=== PATIENT | female | born 1975 ===

== ENCOUNTER 2017-01-19 10:10 | Emergency (ER) | payer OTHER ==
[2017-01-19 10:17] VITALS: BMI 24.1
--- NOTE | 2017-01-19 10:31 | C.PDOC ---
Time Seen by Provider: 01/19/17 10:18 Chief Complaint (Nursing): Female Genitourinary History Per: Patient History/Exam Limitations: no limitations Onset/Duration Of Symptoms: Days Current Symptoms Are (Timing): Still Present Past Medical History Reviewed: Historical Data, Nursing Documentation, Vital Signs Vital Signs: Last Vital Signs Temp 98.2 F 01/19/17 11:20 Pulse 80 01/19/17 11:20 Resp 16 01/19/17 11:20 BP 130/70 01/19/17 11:20 Pulse Ox 100 01/20/17 20:16 Surgical History: No Surg Hx Family History: States: Unknown Family Hx - Social History Hx Alcohol Use: No Hx Substance Use: No - Immunization History Hx Tetanus Toxoid Vaccination: No Hx Influenza Vaccination: No Hx Pneumococcal Vaccination: No Review Of Systems Constitutional: Negative for: Fever, Chills, Sweats Respiratory: Negative for: Cough, Shortness of Breath Gastrointestinal: Positive for: Nausea, Abdominal Pain. Negative for: Diarrhea , Constipation Genitourinary: Positive for: Dysuria, Frequency. Negative for: Hematuria, Vaginal Discharge, Vaginal Bleeding Skin: Negative for: Rash Physical Exam - Physical Exam Appears: Non-toxic, No Acute Distress Skin: Warm, Dry Head: Atraumatic, Normacephalic Eye(s): bilateral: Normal Inspection, PERRL Oral Mucosa: Moist Neck: Supple Chest: Symmetrical, No Deformity, No Tenderness Cardiovascular: Rhythm Regular, No Murmur Respiratory: Normal Breath Sounds, No Rales, No Rhonchi Gastrointestinal/Abdominal: Soft, Tenderness (mild suprapubic), No Guarding, No Rebound Back: No CVA Tenderness Neurological/Psych: Oriented x3, Normal Speech, Normal Cognition ED Course And Treatment O2 Sat by Pulse Oximetry: 100 (RA) Progress Note: The patient received a Urine Culture and UA. The exams are unremarkable.The patient is afebrile and is PO tolerant. The patient has improved and is resting comfortably. The patient is advised to have a follow up with her PMD for further evaluation. 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 Disposition Counseled Patient/Family Regarding: Studies Performed, Diagnosis, Need For Followup, Rx Given - Disposition Referrals: Charity Araiza MD [Non-Staff] - Disposition: HOME/ ROUTINE Disposition Time: 10:50 Condition: STABLE Additional Instructions: Please take antibiotics as prescribed. Follow up with your motorcycle deliverer with annual exam and re-evaluatin. Return to ER for back pain, vomiting or any other concerns. Prescriptions: Nitrofurantoin Macrocrystals [Macrobid] 100 mg PO BID #14 cap Instructions: Urinary Tract Infection in Women (ED) Forms: [facility] (Armenian), General Discharge Instructions - Clinical Impression Clinical Impression: UTI (urinary tract infection) - PA / [employer] / Resident Statement MD/DO has reviewed & agrees with the documentation as recorded. MD/DO has examined the patient and agrees with the treatment plan. - Scribe Statement The provider has reviewed the documentation as recorded by the Joselito Catherine All medical record entries made by the Joselito were at my direction and personally dictated by me. I have reviewed the chart and agree that the record accurately reflects my personal performance of the history, physical exam, medical decision making, and the department course for this patient. I have also personally directed, reviewed, and agree with the discharge instructions and disposition.manda
[2017-01-19 10:35] VITALS: O2SAT 100
[2017-01-19 10:42] LABS: RBC URINE 1 /hpf (0-3); URINE BACTERIA OCC (<OCC); URINE BILIRUBIN NEGATIVE (NEGATIVE); URINE BLOOD NEGATIVE (NEGATIVE); URINE COLOR Yellow (YELLOW); URINE GLUCOSE (UA) NORMAL (Normal); URINE KETONE NEGATIVE (NEGATIVE); URINE LEUKOCYTE ESTERASE TRACE Leu/uL (Negative); URINE PROTEIN NEGATIVE (NEGATIVE); URINE UROBILINOGEN NORMAL mg/dL (0.2-1.0); WBC URINE 4 /hpf (0-5)
[2017-01-19 11:21] VITALS: BP 130/70; PULSE 80; RESP 16; TEMP 98.2
== END 2017-01-19 11:20 | disposition home or self-care (01) ==
LOC: C.ER 10:10
DX: N39.0 Urinary tract infection, site not specified (principal)

== ENCOUNTER 2017-03-24 20:54 | Emergency (ER) | payer OTHER ==
[2017-03-24 20:54] VITALS: BMI 24.1
--- NOTE | 2017-03-24 21:35 | C.PDOC ---
History Of Present Illness Gabriela Espinosa is a 41 y/o female complaining of nausea and diarrhea and cramping abdominal pain. She initially came to the ER accompanying her three sick children, who are being seen for similar symptoms. A fourth child, the youngest daughter, was sick first on . No fever or chills. Pt became nauseous while in [facility]EDS ER, requesting medication for nausea. She has not yet vomited. Time Seen by Provider: 03/24/17 21:17 Chief Complaint (Nursing): Abdominal Pain History Per: Patient History/Exam Limitations: no limitations Onset/Duration Of Symptoms: Days (x 1) Current Symptoms Are (Timing): Still Present Associated Symptoms: Nausea, Diarrhea Past Medical History Reviewed: Historical Data, Nursing Documentation, Vital Signs Vital Signs: Last Vital Signs Temp 98.8 F 03/24/17 21:15 Pulse 83 03/24/17 21:15 Resp 20 03/24/17 21:15 BP 88/62 L 03/24/17 21:15 Pulse Ox 100 03/24/17 21:15 - Medical History PMH: No Chronic Diseases Surgical History: No Surg Hx Family History: States: Unknown Family Hx - Social History Hx Alcohol Use: No Hx Substance Use: No - Immunization History Hx Tetanus Toxoid Vaccination: No Hx Influenza Vaccination: No Hx Pneumococcal Vaccination: No Review Of Systems Constitutional: Negative for: Fever Gastrointestinal: Positive for: Nausea, Diarrhea. Negative for: Vomiting Physical Exam - Physical Exam Appears: Non-toxic, Other (looks uncomfortable) Skin: Normal Color, Warm, Dry Head: Atraumatic, Normacephalic Eye(s): bilateral: Normal Inspection, PERRL, EOMI Neck: Normal ROM, Supple Cardiovascular: Rhythm Regular, No Murmur Respiratory: Normal Breath Sounds, No Rales, No Rhonchi, No Wheezing Gastrointestinal/Abdominal: Soft, Tenderness (mild epigastric tenderness) Back: Normal Inspection, No CVA Tenderness, No Vertebral Tenderness Extremity: Normal ROM, No Tenderness, No Pedal Edema Neurological/Psych: Oriented x3, Normal Speech, Normal Cognition, Normal Motor, Normal Sensation Medical Decision Making Medical Decision Making: Initial Plan: Zofran 4 mg 1003 pm pt feeling better after zofran. will d/c with pmd f/u Disposition Counseled Patient/Family Regarding: Need For Followup, Rx Given - Disposition Referrals: [facility] [Outside] Disposition: HOME/ ROUTINE Disposition Time: 22:49 Condition: IMPROVED Additional Instructions: [place] fllods,. increased fluids, zofran for nausea. Follow up with your doctor, Return for any worse symptoms. Prescriptions: Ondansetron ODT [Zofran ODT] 4 mg PO TID #12 odt Instructions: Gastroenteritis (ED) Forms: [facility] (Barbadian), General Discharge Instructions - Clinical Impression Clinical Impression: Gastroenteritis
[2017-03-24 21:42] VITALS: RESP 20; O2SAT 100
[2017-03-24] MEDS ORDERED: Sodium Chloride 0.9% 1,000 ML IV ONE (22:07)
[2017-03-24 23:00] VITALS: BP 95/62; PULSE 86; TEMP 97.8
== END 2017-03-24 23:19 | disposition home or self-care (01) ==
LOC: C.ER 20:54
DX: K52.9 Noninfective gastroenteritis and colitis, unspecified (principal)
CPT/HCPCS: 96360; 99284; J7040